=== PATIENT | male | born 1965 | race Caucasian/White ===

== ENCOUNTER 2018-01-04 05:49 | Day surgery (SDC) | payer OTHER ==
[~2018-01-04] VITALS: Ht 182.9 cm; Wt 99.8 kg
[~2018-01-04 05:49] MED LIST: CELEXA40 MG PO; CLARITIN,ALAVAR10 MG PO; GLUCOSAMINE1000 MG PO; NASACORT10.8 ML BOTH NARES
[2018-01-04 06:14] VITALS: BP 120/82
[2018-01-04] MEDS ORDERED: NORCO 5/3251 TABLET PO (08:32)
[2018-01-04 09:20] VITALS: BP 152/93
[2018-01-04 10:15] VITALS: BP 148/85
== END 2018-01-04 10:45 | disposition home or self-care (01) ==
LOC: SDC 05:49
PROC: 0WUF4JZ Supplement Abdominal Wall with Synthetic Substitute, Percutaneous Endoscopic Approach (ICD-10-PCS; principal; 2018-01-04)
DX: K42.9 Umbilical hernia without obstruction or gangrene (principal); E66.9 Obesity, unspecified; Z68.29 Body mass index [BMI] 29.0-29.9, adult; G47.30 Sleep apnea, unspecified; Z87.891 Personal history of nicotine dependence
CPT/HCPCS: C1781; J0330; J0690; J1100; J1170; J2405; J2710; J3010